=== PATIENT | male | born 1950 | race Caucasian/White ===

== ENCOUNTER 2020-08-24 17:35 | Emergency (ER) | payer BC, MEDICARE ==
[2020-08-24] MEDS ORDERED: Sodium Chloride 0.9% 1,000 ML IV SCH (18:15)
--- NOTE | 2020-08-24 18:15 | EDM.PDOC ---
ED HPI GENERAL MEDICAL PROBLEM - General Chief Complaint: Abdominal Pain Stated Complaint: CAT SCAN REFFERAL FROM [facility] Time Seen by Provider: 08/24/20 18:07 Source of Information: Reports: Patient, Family, Old Records, RN Notes Reviewed History Limitations: Reports: No Limitations - History of Present Illness INITIAL COMMENTS - FREE TEXT/NARRATIVE: 70-year-old gentleman presents emergency department a complaint of right lower quadrant pain he states the pain was more generalized earlier this morning but now has migrated down to the right lower quadrant. He was evaluated in clinic seen his primary care provider Laura Wilson who then performed urinalysis CBC which revealed a white count elevated at 14.2 urinalysis shows a specific gravity is 1.03 otherwise unremarkable subsequently transferred to the emergency department for further evaluation. He states he still passing gas he has no history of abdominal surgeries Right Lower Abdomen Pain Score (Numeric/FACES): 1 - Related Data Allergies Allergy/AdvReac Type Severity Reaction Status Date / Time No Known Allergies Allergy Verified 08/24/20 18:00 Home Meds: Home Meds NK [No Known Home Meds] 08/24/20 [History] Past Medical History Musculoskeletal History: Reports: Arthritis, Fracture Neurological History: Reports: Concussion, Migraines - Infectious Disease History Infectious Disease History: Reports: Chicken Pox, Measles, Mumps, Shingles - Past Surgical History Musculoskeletal Surgical History: Reports: Other (See Below) Other Musculoskeletal Surgeries/Procedures:: tendon repair in finger. Social & Family History - Tobacco Use Tobacco Use Status *Q: Never Tobacco User - Caffeine Use Caffeine Use: Reports: Coffee - Alcohol Use Number of Drinks Per Day: 2 - Recreational Drug Use Recreational Drug Use: No ED ROS GENERAL - Review of Systems Review Of Systems: See Below Constitutional: Reports: No Symptoms Respiratory: Reports: No Symptoms Cardiovascular: Reports: Dyspnea on Exertion GI/Abdominal: Reports: Abdominal Pain, Flatus. Denies: Constipation, Diarrhea, Nausea, Vomiting : Reports: No Symptoms ED EXAM, GI/ABD - Physical Exam Exam: See Below Exam Limited By: No Limitations General Appearance: Alert, WD/WN, No Apparent Distress Respiratory/Chest: No Respiratory Distress, Lungs Clear, Normal Breath Sounds, No Accessory Muscle Use, Chest Non-Tender Cardiovascular: Regular Rate, Rhythm, No Murmur GI/Abdominal Exam: Normal Bowel Sounds, Soft, No Distention, No Abnormal Bruit, Guarding (Right lower quadrant), Tender Course - Vital Signs Last Recorded V/S: Last Vital Signs Temp 96.4 F L 08/24/20 18:00 Pulse 71 08/24/20 18:00 Resp 16 08/24/20 18:00 BP 159/89 H 08/24/20 18:00 Pulse Ox 97 08/24/20 18:00 - Orders/Labs/Meds Orders: Active Orders 24 hr Category Date Time Status Peripheral IV Care [RC] . DIRECTED Care 08/24/20 18:13 Active Iopamidol [Isovue-300 (61%)] Med 08/24/20 18:45 Active 100 ml IV . DIRECTED Sodium Chloride 0.9% [Normal Saline] 1,000 ml Med 08/24/20 18:15 Active IV ASDIRECTED Sodium Chloride 0.9% [Normal Saline] 80 ml Med 08/24/20 18:45 Active IV ASDIRECTED Sodium Chloride 0.9% [Saline Flush] Med 08/24/20 18:13 Active 10 ml FLUSH ASDIRECTED PRN Peripheral IV Insertion Adult [OM.PC] Urgent Oth 08/24/20 18:13 Ordered Medication Orders Sodium Chloride (Normal Saline) 1,000 mls @ 500 mls/hr IV ASDIRECTED [facility] Last Admin: 08/24/20 18:21 Dose: 500 mls/hr Documented by: STEPHANIE Sodium Chloride (Normal Saline) 80 mls @ 3 mls/sec IV ASDIRECTED BEHZAD Last Admin: 08/24/20 18:46 Dose: 3 mls/sec Documented by: LUCIANO Iopamidol (Isovue-300 (61%)) 100 ml IV . DIRECTED BEHZAD Last Admin: 08/24/20 18:46 Dose: 100 ml Documented by: LUCIANO Sodium Chloride (Saline Flush) 10 ml FLUSH ASDIRECTED PRN PRN Reason: Keep Vein Open Last Admin: 08/24/20 18:46 Dose: 10 ml Documented by: Admin: 08/24/20 18:20 Dose: 10 ml Documented by: STEPHANIE Labs: Laboratory Tests 08/24/20 Range/Units 18:13 Sodium 137 L (140-148) mmol/L Potassium 3.7 (3.6-5.2) mmol/L Chloride 103 (100-108) mmol/L Carbon Dioxide 24 (21-32) mmol/L Anion Gap 13.7 (5.0-14.0) mmol/L BUN 13 (7-18) mg/dL Creatinine 1.1 (0.8-1.3) mg/dL Est Cr Clr Drug Dosing 72.64 mL/min Estimated GFR (MDRD) > 60 (>60) Glucose 103 (74-106) mg/dL Calcium 8.6 (8.5-10.1) mg/dL Total Bilirubin 1.0 (0.2-1.0) mg/dL AST 16 (15-37) U/L ALT 24 (12-78) U/L Alkaline Phosphatase 69 (46-116) U/L Total Protein 6.1 L (6.4-8.2) g/dL Albumin 3.5 (3.4-5.0) g/dL Globulin 2.6 (2.3-3.5) g/dL Albumin/Globulin Ratio 1.3 (1.2-2.2) Meds: Medications Generic Name Dose Route Start Last Admin Trade Name Freq PRN Reason Stop Dose Admin Sodium Chloride 1,000 mls @ 500 mls/hr 08/24/20 18:15 08/24/20 18:21 Normal Saline IV 500 mls/hr ASDIRECTED BEHZAD Administration Sodium Chloride 80 mls @ 3 mls/sec 08/24/20 18:45 08/24/20 18:46 Normal Saline IV 3 mls/sec ASDIRECTED BEHZAD Administration Iopamidol 100 ml 08/24/20 18:45 08/24/20 18:46 Isovue-300 (61%) IV 100 ml . DIRECTED BEHZAD Administration Sodium Chloride 10 ml 08/24/20 18:13 08/24/20 18:46 Saline Flush FLUSH 10 ml ASDIRECTED PRN Administration Keep Vein Open Departure - Departure Time of Disposition: 19:41 Disposition: DC/Tfer to Acute Hospital 02 Condition: Fair Clinical Impression: Appendicitis Qualifiers: Appendicitis type: acute appendicitis Acute appendicitis type: with localized p eritonitis Appendicitis gangrene presence: without gangrene Appendicitis perforation presence: without perforation Appendicitis abscess presence: without abscess Qualified Code(s): K35.30 - Acute appendicitis with localized peritonitis, without perforation or gangrene - Discharge Information Instructions: Appendicitis, Adult Referrals: Laura Wilson PA [Primary Care Provider] - Forms: ED Department Discharge Additional Instructions: Please do not eat or drink anything, please report to the [facility] emergency department at which time you are going to register the physician who has excepted you is Dr. Varela Sepsis Event Note (ED) - Evaluation Sepsis Screening Result: No Definite Risk - Focused Exam Vital Signs: Vital Signs Temp Pulse Resp BP Pulse Ox 08/24/20 18:00 96.4 F L 71 16 159/89 H 97 08/24/20 17:53 96.4 F L 71 16 159/89 H 97 - My Orders Last 24 Hours: My Active Orders 08/24/20 18:13 Peripheral IV Care [RC] . DIRECTED Sodium Chloride 0.9% [Saline Flush] 10 ml FLUSH ASDIRECTED PRN Peripheral IV Insertion Adult [OM.PC] Urgent 08/24/20 18:15 Sodium Chloride 0.9% [Normal Saline] 1,000 ml IV ASDIRECTED 08/24/20 18:45 Iopamidol [Isovue-300 (61%)] 100 ml IV . DIRECTED Sodium Chloride 0.9% [Normal Saline] 80 ml IV ASDIRECTED - Assessment/Plan Last 24 Hours: My Active Orders 08/24/20 18:13 Peripheral IV Care [RC] . DIRECTED Sodium Chloride 0.9% [Saline Flush] 10 ml FLUSH ASDIRECTED PRN Peripheral IV Insertion Adult [OM.PC] Urgent 08/24/20 18:15 Sodium Chloride 0.9% [Normal Saline] 1,000 ml IV ASDIRECTED 08/24/20 18:45 Iopamidol [Isovue-300 (61%)] 100 ml IV . DIRECTED Sodium Chloride 0.9% [Normal Saline] 80 ml IV ASDIRECTED Plan: Assessment Acuity = acute Site and laterality = acute appendicitis Etiology = unknown Manifestations = abdominal pain Location of injury = Home Lab values = sodium low at 137 consistent hyponatremia remainder of CMP is unremarkable, CT scan describes acute appendicitis above Plan Call discussed case with Dr. Varela general surgeon [facility] at 1935 he kindly accepted the patient because he is received no pain medication here he is stable elected to transport him via private vehicle his will drive him. He will report to the emergency department at [facility] films have been pushed through the PACS system but he will also handcarried my note and a CD of the films. He has not had a Covid test done This note was dictated using [employer] voice recognition software please call with any questions on syntax or grammar.
[2020-08-24] MEDS: Sodium Chloride 0.9% 10 ML Syringe FLUSH PRN ×2 (18:20→18:46)
[2020-08-24] MEDS ORDERED: Sodium Chloride 0.9% 80 ML IV SCH (18:45)
[2020-08-24] MEDS ORDERED: Iopamidol 612 MG/ML 100 ML Bottle IV SCH (18:45)
--- NOTE | 2020-08-24 19:15 | CRLCT ---
INDICATION: Right lower quadrant pain TECHNIQUE: CT abdomen and pelvis acquired with 100 cc Isovue 300 IV contrast. COMPARISON: None. FINDINGS: Lower chest: Unremarkable. Liver: Unremarkable. Spleen: Unremarkable. Pancreas: Unremarkable. Gallbladder and bile ducts: Unremarkable. Adrenal glands: Unremarkable. Kidneys: Unremarkable. GI tract: The appendix measures 1.1 cm in diameter. Periappendiceal stranding. No extraluminal air or abscess. Minimal colonic diverticulosis. Vascular structures: Unremarkable. Lymph nodes: Unremarkable. Miscellaneous: Unremarkable. No free air or significant free fluid. Pelvic Organs: Unremarkable. Bones: Scoliosis. IMPRESSION: Acute appendicitis. No extraluminal air or abscess. These findings were discussed with Officer at 7:12 p.m. on August 24, 2020. Minimal colonic diverticulosis. Please note that all CT scans at this facility use dose modulation, iterative reconstruction, and/or weight-based dosing when appropriate to reduce radiation dose to as low as reasonably achievable. Dictated by Beatriz De La Rosa MD @ Aug 24 2020 7:08PM Signed by Dr. Beatriz De La Rosa @ Aug 24 2020 7:14PM
== END 2020-08-24 19:45 ==
LOC: JP.ED 17:35
DX: K35.30 Acute appendicitis with localized peritonitis, without perforation or gangrene (principal)
CPT/HCPCS: 36415; 74177; 80053; 96360; 96361; 99285; J7030; Q9967

== ENCOUNTER 2021-12-01 14:31 | Emergency (ER) | payer MEDICARE ==
[2021-12-01 16:28] LABS: CORONAVIRUS COVID-19 NAA POSITIVE (NEGATIVE)
== END 2021-12-01 16:50 | disposition home or self-care (01) ==
LOC: JP.ED 14:31
DX: U07.1 COVID-19 (principal); J40 Bronchitis, not specified as acute or chronic
CPT/HCPCS: 0241U; 99283

== ENCOUNTER 2024-11-07 14:01 | Emergency (ER) | payer MEDICARE ==
[2024-11-07 15:06] LABS: HEMATOCRIT 44.4 % (38.4-49.7); HEMOGLOBIN 15.6 g/dL (12.9-16.9); MEAN CORPUSCULAR HEMOGLOBIN 30.2 pg (31.6-35.5); MEAN CORPUSCULAR HGB CONC 35.1 g/dL (31.6-35.5); PLATELET COUNT,PLT 185 K/uL (130-375); RED BLOOD CELL COUNT 5.16 M/uL (4.14-5.76); WHITE BLOOD CELL COUNT,WBC 12.3 K/uL (3.2-11.0)
[2024-11-07 15:44] LABS: ATYPICAL LYMPHOCYTES RARE; EOSINOPHILS ABSOLUTE MAN 0.49 K/uL (0.00-0.40); EOSINOPHILS PERCENT MAN 4 % (2-4); LYMPHOCYTES ABSOLUTE MAN 5.17 K/uL (0.8-3.3); LYMPHOCYTES PERCENT MAN 42 % (24-44); MONOCYTES ABSOLUTE MAN 0.86 K/uL (0.20-0.90); MONOCYTES PERCENT MAN 7 % (2-6); NEUTROPHILS ABSOLUTE MAN 5.78 K/uL (1.0-7.6); SEG NEUTROPHILS PERCENT MAN 47 % (36-66)
== END 2024-11-07 16:28 | disposition home or self-care (01) ==
LOC: JP.ED 14:01
DX: J40 Bronchitis, not specified as acute or chronic (principal); Z91.013 Allergy to seafood
CPT/HCPCS: 36415; 85025; 86140; 87428-QW; 87651-QW; 99283